=== PATIENT | female | born 1960 | race Caucasian/White ===

== ENCOUNTER 2018-05-29 07:53 | Emergency (ER) | payer OTHER ==
[~2018-05-29 07:53] MED LIST: ASPI-435 PO; LPR25 PO; TMF75 PO
[2018-05-29 07:55] VITALS: TEMP 36.5
[2018-05-29] MEDS ORDERED: SODIUM CHLORIDE 0.9% 1000ML 1,000 ML IV STA ×2 (08:02→09:25)
[2018-05-29] MEDS ORDERED: ONDANSETRON INJ 2 MG/ML 2 ML VIAL IV STA (08:02)
--- NOTE | 2018-05-29 08:11 | EMERGENCY ROOM VISIT NOTE ---
History Report prepared by [place]: Christian Navarrete Under the Supervision of: Dr. Sp Brar M.D. First contact with patient: 07:58 Chief Complaint: ABDOMINAL PAIN Stated Complaint: ABD PAIN History of Present Illness The patient is a 57 year old female who presents to the Emergency Room with abdominal pain. The patient is complaining of severe and constant abdominal pain since this morning. The patient notes that she does have a history of abdominal surgeries. She states that she has received Morphine in the past for pain when she has had similar pain. She denies any alcohol abuse, history of smoking, or drug abuse. Pain is generalized. No melena hematochezia dysuria hematuria. Reports nausea and vomiting. No hematemesis bilious vomiting or coffee-ground emesis. Source of History: patient Onset: This morning Position: abdomen Symptom Intensity: severe Timing: constant Review of Systems See HPI for pertinent positives and negatives. A total of ten systems were reviewed and were otherwise negative. Past Medical & Surgical Medical Problems: (1) Acute pancreatitis (2) Gastroenteritis (3) Hypertension Family History FH: arthritis FH: stroke Social History Smoking Status: Unknown if Ever Smoked Drug Use: none Marital Status: Housing Status: lives with significant other Current/Historical Medications Scheduled Aspirin (Aspirin 81), 81 MG PO DAILY Cholecalciferol (Vitamin D3), 1 TAB PO DAILY Allergies Coded Allergies: Hydroquinone (Verified Allergy, Severe, BLISTER, 05/29/18) AFFECTS HER AT "20%" Hydrocortisone (Verified Allergy, Unknown, BLISTERS, 05/29/18) Latex1 -Allergic Contact Dermititis (Verified Allergy, Unknown, BLISTERS, 05/29/18) Neomycin (Verified Allergy, Unknown, BLISTERS, 05/29/18) Uncoded Allergies: AMMONIUM THIOGLYCOLATE (Allergy, Severe, BLISTERS, 02/21/18) COMPONENT OF LATEX Physical Exam Vital Signs Date Time Temp Pulse Resp B/P (MAP) Pulse Ox O2 Delivery O2 Flow Rate FiO2 05/29/18 11:42 76 18 164/116 97 05/29/18 11:25 157/134 05/29/18 11:16 87 22 246/125 98 Room Air 05/29/18 09:18 76 16 219/110 96 Room Air 05/29/18 08:44 74 20 100 Room Air 05/29/18 08:16 66 05/29/18 07:55 36.5 71 24 229/112 100 Room Air Physical Exam Physical Exam GENERAL: She is oriented to person, place, and time. Patient is distressed. HENT: Exam performed. Head: Normocephalic and atraumatic. Right Ear: External ear normal. No mastoid tenderness. Left Ear: External ear normal. No mastoid tenderness. Mouth/Throat: The oropharynx is clear and moist. No trismus in the jaw. No dental abscesses or uvula swelling. No oropharyngeal exudate or tonsillar abscesses. EYES: Conjunctivae and EOM are normal. Pupils are equal, round, and reactive to light. Right eye exhibits no discharge. Left eye exhibits no discharge. No scleral icterus. NECK: Normal range of motion. Neck supple. No JVD present. No spinous process tenderness present. No carotid bruit present. No rigidity. No tracheal deviation and normal range of motion present. No Brudzinski's sign and no Kernig 's sign noted. CV: Normal rate, regular rhythm, normal heart sounds and intact distal pulses. There is no peripheral edema. Palpable radial pulses bue. PULM/CHEST: Effort normal and breath sounds normal. No respiratory distress. No stridor. She has no wheezes. She has no rales. Chest Wall: She exhibits no tenderness. ABD: The abdomen is soft. Bowel sounds are normal. She has no distension. No mass is present. There diffuse abdominal pain on palpation. There is no rebound , no guarding, no Del Cid's sign and no tenderness at McBurney's point. Rovsig negative MUSC/SKEL: Normal range of motion. There is no peripheral edema, tenderness or deformity. LYMPH: No cervical adenopathy. NEURO: She is alert and oriented to person, place, and time. She has normal strength. No cranial nerve deficit or sensory deficit. Coordination and gait normal. GCS eye subscore is 4. GCS verbal subscore is 5. GCS motor subscore is 6. Cerebellar tests wnl. SKIN: Skin is warm and dry. She is not diaphoretic. PSYCH: She has a normal mood and affect. Behavior is normal. Judgment and thought content normal. Medical Decision & Procedures ER Provider Diagnostic Interpretation: Radiology results as stated below per my review and radiologist interpretation: CT OF THE ABDOMEN AND PELVIS WITH CONTRAST CLINICAL HISTORY: Mid abdominal pain. COMPARISON STUDY: CT of the abdomen and pelvis December 08, 2017 and right upper quadrant ultrasound December 09, 2017. TECHNIQUE: Following IV administration of 93 mL of Optiray-320, axial images of the abdomen and pelvis were obtained from the lung bases to the proximal femurs. Images were reviewed in the axial, sagittal, and coronal planes. IV contrast was administered without complication. A dose lowering technique was utilized adhering to the principles of ALARA. CT DOSE: 891.13 mGy.cm FINDINGS: A small hiatal hernia is noted. A 2 cm left adrenal nodule is unchanged and CT of May 22, 2016. This is likely benign given stability. Exam is mildly compromised by motion artifact. There is no peripancreatic or pericholecystic infiltration. No biliary or pancreatic ductal dilatation is present. The spleen is normal. There is mild bilateral collecting system dilatation, greater on the right. Bladder is mildly distended. There is mild bladder wall thickening. No pneumatosis, free air or portal venous gas is present. There is mild wall thickening of the a sending colon and proximal transverse colon. There is no evidence for a bowel obstruction. The appendix is not well visualized on this exam. There is no right lower quadrant inflammation. IMPRESSION: 1. Appendix not well visualized on this exam but no right lower quadrant inflammation. 2. Mild wall thickening of the ascending colon and transverse colon which is likely due to underdistention although a nonspecific mild colitis could appear similar. 3. Mild bladder wall thickening which could be correlated with urinalysis to exclude cystitis. 4. Mild bilateral collecting system dilatation, greater on the right. This may be related to mild bladder distention. Electronically signed by: Edvin Quiroz M.D. 05/29/2018 9:43 AM Dictated Date/Time: 05/29/2018 9:28 AM CHEST ONE VIEW PORTABLE CLINICAL HISTORY: Epigastric pain. COMPARISON STUDY: Chest radiograph December 08, 2017. FINDINGS: Lung volumes are normal. No pneumothorax or pleural effusion is noted. There is no consolidation. Cardiac size is normal. Mediastinal contours are normal. There is no evidence for pulmonary edema. IMPRESSION: No acute cardiopulmonary findings. Electronically signed by: Edvin Quiroz M.D. 05/29/2018 8:27 AM Dictated Date/Time: 05/29/2018 8:26 AM Laboratory Results 05/29/18 08:05 Red Blood Count 4.94, Mean Corpuscular Volume 85.6, Mean Corpuscular Hemoglobin 29.1, Mean Corpuscular Hemoglobin Concent 34.0, Mean Platelet Volume 10.1, Neutrophils (%) (Auto) 82.9, Lymphocytes (%) (Auto) 13.1, Monocytes (%) (Auto) 3.2, Eosinophils (%) (Auto) 0.3, Basophils (%) (Auto) 0.2, Neutrophils # (Auto) 13.25, Lymphocytes # (Auto) 2.10, Monocytes # (Auto) 0.51, Eosinophils # (Auto) 0.05, Basophils # (Auto) 0.03 05/29/18 08:05 Test 05/29/18 08:05 05/29/18 08:15 05/29/18 08:30 05/29/18 10:00 White Blood Count 15.99 K/uL (4.8-10.8) Red Blood Count 4.94 M/uL (4.2-5.4) Hemoglobin 14.4 g/dL (12.0-16.0) Hematocrit 42.3 % (37-47) Mean Corpuscular Volume 85.6 fL (80-100) Mean Corpuscular Hemoglobin 29.1 pg (25-34) Mean Corpuscular Hemoglobin Concent 34.0 g/dl (32-36) Platelet Count 344 K/uL (130-400) Mean Platelet Volume 10.1 fL (7.4-10.4) Neutrophils (%) (Auto) 82.9 % Lymphocytes (%) (Auto) 13.1 % Monocytes (%) (Auto) 3.2 % Eosinophils (%) (Auto) 0.3 % Basophils (%) (Auto) 0.2 % Neutrophils # (Auto) 13.25 K/uL (1.4-6.5) Lymphocytes # (Auto) 2.10 K/uL (1.2-3.4) Monocytes # (Auto) 0.51 K/uL (0.11-0.59) Eosinophils # (Auto) 0.05 K/uL (0-0.5) Basophils # (Auto) 0.03 K/uL (0-0.2) RDW Standard Deviation 41.8 fL (36.4-46.3) RDW Coefficient of Variation 13.3 % (11.5-14.5) Immature Granulocyte % (Auto) 0.3 % Immature Granulocyte # (Auto) 0.05 K/uL (0.00-0.02) Estimated GFR () 79.0 Estimated GFR (Non- 68.2 BUN/Creatinine Ratio 15.1 (10-20) Calcium Level 9.2 mg/dl (8.5-10.1) Total Bilirubin 0.4 mg/dl (0.2-1) Direct Bilirubin 0.1 mg/dl (0-0.2) Aspartate Amino Transf (AST/SGOT) 18 U/L (15-37) Alanine Aminotransferase (ALT/SGPT) 21 U/L (12-78) Alkaline Phosphatase 87 U/L (45-117) Total Protein 7.8 gm/dl (6.4-8.2) Albumin 4.1 gm/dl (3.4-5.0) Lipase 165 U/L (73-393) Bedside Hemoglobin 15.3 g/dl (12.0-16.0) Bedside Hematocrit 45 % (37-47) Bedside Sodium 142 mEq/L (135-144) Bedside Potassium 3.5 mEq/L (3.3-5.0) Bedside Chloride 105 mEq/L (101-112) Bedside Total CO2 20 mEq/l (24-31) Anion Gap 21.0 mmol/L (16-25) Bedside Blood Urea Nitrogen 14 mg/dl (7-18) Bedside Creatinine 0.7 mg/dl (0.6-1.3) Bedside Glucose (other) 184 mg/dl (70-99) Bedside Ionized Calcium (Teressa) 1.09 mmol/l (1.12-1.32) Lactic Acid Level 3.8 mmol/L (0.4-2.0) Urine Color YELLOW Urine Appearance CLEAR (CLEAR) Urine pH 8.0 (4.5-7.5) Urine Specific [place] 1.023 (1.000-1.030) Urine Protein NEG (NEG) Urine Glucose (UA) NEG (NEG) Urine Ketones NEG (NEG) Urine Occult Blood NEG (NEG) Urine Nitrite NEG (NEG) Urine Bilirubin NEG (NEG) Urine Urobilinogen NEG (NEG) Urine Leukocyte Esterase NEG (NEG) Test 05/29/18 11:25 Bedside Lactic Acid Venous 1.24 mmol/L (0.90-1.70) Laboratory results reviewed by me Medications Administered Medications (Trade) Dose Ordered Sig/Isis Route Start Time Stop Time Status Last Admin Dose Admin Sodium Chloride 1,000 ml @ 999 mls/hr Q1H1M STAT IV 05/29/18 08:02 05/29/18 09:02 DC 05/29/18 08:25 999 MLS/HR Hydromorphone HCl (Dilaudid Inj) 1 mg NOW PRN IV 05/29/18 08:15 05/29/18 12:52 DC 05/29/18 10:32 1 MG Ondansetron HCl (Zofran Inj) 4 mg NOW STAT IV 05/29/18 08:02 05/29/18 08:05 DC 05/29/18 08:25 4 MG Lorazepam (Ativan Inj) 1 mg NOW STAT IV 05/29/18 08:56 05/29/18 08:58 DC 05/29/18 09:03 1 MG Sodium Chloride 1,000 ml @ 999 mls/hr Q1H1M STAT IV 05/29/18 09:25 05/29/18 10:25 DC 05/29/18 09:25 999 MLS/HR ED Course 0759: The patient was evaluated in room B10. A complete history and physical exam was performed. 0802: Ordered Zofran 4 mg IV, Sodium Chloride 1000 mL @ 999 mL/hr IV 0806: The patient's EMR was reviewed and shows a history of pancreatitis. 0815: Ordered Dilaudid 1 mg IV. 0856: Ordered Lorazepam 1 mg IV. 0925: Ordered Sodium Chloride 1000 mL @ 999 mL IV. 1143: I checked on the patient at this time. Her vitals are stable at this time , labs showed a leukocytosis of 16 and a Lactic acid of 3.8. CT scan was negative for appendicitis. Her gallbladder is WNL. Urine did not show any signs of infection. After fluid bolus and pain medications the patient states that she feels better. Repeat abdominal exam showed no pain on palpation of the abdomen. Lactic acid was normal on repeat and was thought to be due to dehydration. Will follow-up with PCP. The states that he will drive her home. DISCHARGE - Plan of care discussed with patient and questions answered. The patient was given both verbal and printed discharge instructions. The patient verbalized understanding and ability to comply. The patient is to seek outpatient follow up as noted in the discharge instructions. The patient verbalized understanding and ability to comply. The patient is discharged in stable condition. The patient was instructed to return for worsening symptoms. Medical Decision vitals are stable at this time, labs showed a leukocytosis of 16 and a Lactic acid of 3.8. CT scan was negative for appendicitis. Her gallbladder is WNL. Urine did not show any signs of infection. After fluid bolus and pain medications the patient states that she feels better. Repeat abdominal exam showed no pain on palpation of the abdomen. Lactic acid was normal on repeat and was thought to be due to dehydration. Will follow-up with PCP. The states that he will drive her home. DISCHARGE - Plan of care discussed with patient and questions answered. The patient was given both verbal and printed discharge instructions. The patient verbalized understanding and ability to comply. The patient is to seek outpatient follow up as noted in the discharge instructions. The patient verbalized understanding and ability to comply. The patient is discharged in stable condition. The patient was instructed to return for worsening symptoms. Medication Reconcilliation Current Medication List: was personally reviewed by me Blood Pressure Screening Patient's blood pressure: Elevated blood pressure Blood pressure disposition: Referred to PCP Impression Primary Impression: Abdominal pain Scribe Attestation The scribe's documentation has been prepared under my direction and personally reviewed by me in its entirety. I confirm that the note above accurately reflects all work, treatment, procedures, and medical decision making performed by me. The chart was completed utilizing [employer] Speech voice recognition software. Grammatical errors, random word insertions, pronoun errors, and incomplete sentences are an occasional consequence of this system due to software limitations, ambient noise, and hardware issues. Any formal questions or concerns about the content, text, or information contained within the body of this dictation should be directly addressed to the physician for clarification. Departure Information Dispostion Home / Self-Care Referrals Jose Watkins M.D. (PCP) Patient Instructions [facility] Problem Qualifiers Primary Impression: Abdominal pain Abdominal location: unspecified location Qualified Codes: R10.9 - Unspecified abdominal pain
[2018-05-29] MEDS ORDERED: OPTIRAY 320 IV PRN (08:15)
[2018-05-29 08:20] LABS: BASO % 0.2 %; BASO ABS # 0.03 K/uL (0-0.2); EOS % 0.3 %; EOS ABS # 0.05 K/uL (0-0.5); HEMATOCRIT 42.3 % (37-47); HEMOGLOBIN 14.4 g/dL (12.0-16.0); IG# 0.05 K/uL (0.00-0.02); LYMPH % 13.1 %; MEAN CELL VOLUME 85.6 fL (80-100); MEAN CORPUSCULAR HEMOGLOBIN 29.1 pg (25-34); MEAN PLATELET VOLUME 10.1 fL (7.4-10.4); MONO % 3.2 %; MONO ABS # 0.51 K/uL (0.11-0.59); NEUT % 82.9 %; NEUT ABS # 13.25 K/uL (1.4-6.5); PLATELET COUNT 344 K/uL (130-400); RED CELL DISTRIBUTION WIDTH CV 13.3 % (11.5-14.5); RED CELL DISTRIBUTION WIDTH SD 41.8 fL (36.4-46.3); WHITE BLOOD COUNT 15.99 K/uL (4.8-10.8)
[2018-05-29] MEDS: HYDROmorphone INJ 1 MG/ML SYR IV PRN ×2 (08:25→10:32)
--- NOTE | 2018-05-29 08:28 | DIAGNOSTIC IMAGING REPORT ---
CHEST ONE VIEW PORTABLE CLINICAL HISTORY: Epigastric pain. COMPARISON STUDY: Chest radiograph December 08, 2017. FINDINGS: Lung volumes are normal. No pneumothorax or pleural effusion is noted. There is no consolidation. Cardiac size is normal. Mediastinal contours are normal. There is no evidence for pulmonary edema. IMPRESSION: No acute cardiopulmonary findings. Electronically signed by: Edvin Quiroz M.D. 05/29/2018 8:27 AM Dictated Date/Time: 05/29/2018 8:26 AM
[2018-05-29 08:29] LABS: ISTAT CREATININE 0.7 mg/dl (0.6-1.3); ISTAT IONIZED CALCIUM 1.09 mmol/l (1.12-1.32); ISTAT POTASSIUM 3.5 mEq/L (3.3-5.0)
[2018-05-29 08:40] LABS: ALBUMIN 4.1 gm/dl (3.4-5.0); ALKALINE PHOSPHATASE 87 U/L (45-117); ALT/SGPT 21 U/L (12-78); AST/SGOT 18 U/L (15-37); BLOOD UREA NITROGEN 14 mg/dl (7-18); CALCIUM 9.2 mg/dl (8.5-10.1); CARBON DIOXIDE 21 mmol/L (21-32); CREATININE 0.92 mg/dl (0.60-1.20); GLUCOSE 180 mg/dl (70-99); LIPASE 165 U/L (73-393); POTASSIUM 3.5 mmol/L (3.5-5.1); SODIUM 139 mmol/L (136-145); TOTAL PROTEIN 7.8 gm/dl (6.4-8.2)
[2018-05-29] MEDS ORDERED: CHOL1000 PO (08:47)
[2018-05-29] MEDS ORDERED: LORAZEPAM 2 MG/ML 1 ML VIAL IV STA (08:56)
--- NOTE | 2018-05-29 09:44 | DIAGNOSTIC IMAGING REPORT ---
CT OF THE ABDOMEN AND PELVIS WITH CONTRAST CLINICAL HISTORY: Mid abdominal pain. COMPARISON STUDY: CT of the abdomen and pelvis December 08, 2017 and right upper quadrant ultrasound December 09, 2017. TECHNIQUE: Following IV administration of 93 mL of Optiray-320, axial images of the abdomen and pelvis were obtained from the lung bases to the proximal femurs. Images were reviewed in the axial, sagittal, and coronal planes. IV contrast was administered without complication. A dose lowering technique was utilized adhering to the principles of ALARA. CT DOSE: 891.13 mGy.cm FINDINGS: A small hiatal hernia is noted. A 2 cm left adrenal nodule is unchanged and CT of May 22, 2016. This is likely benign given stability. Exam is mildly compromised by motion artifact. There is no peripancreatic or pericholecystic infiltration. No biliary or pancreatic ductal dilatation is present. The spleen is normal. There is mild bilateral collecting system dilatation, greater on the right. Bladder is mildly distended. There is mild bladder wall thickening. No pneumatosis, free air or portal venous gas is present. There is mild wall thickening of the a sending colon and proximal transverse colon. There is no evidence for a bowel obstruction. The appendix is not well visualized on this exam. There is no right lower quadrant inflammation. IMPRESSION: 1. Appendix not well visualized on this exam but no right lower quadrant inflammation. 2. Mild wall thickening of the ascending colon and transverse colon which is likely due to underdistention although a nonspecific mild colitis could appear similar. 3. Mild bladder wall thickening which could be correlated with urinalysis to exclude cystitis. 4. Mild bilateral collecting system dilatation, greater on the right. This may be related to mild bladder distention. Electronically signed by: Edvin Quiroz M.D. 05/29/2018 9:43 AM Dictated Date/Time: 05/29/2018 9:28 AM
[2018-05-29 11:42] VITALS: BP 164/116; PULSE 76; O2SAT 97
[2018-06-01] MEDS ORDERED: VLTG EXT (16:49)
[2018-06-01] MEDS ORDERED: AMLO5TAB3 PO (16:49)
[2018-06-01] MEDS ORDERED: SUCR1TAB29 PO (16:49)
[2018-06-01] MEDS ORDERED: PANT40TA2 PO (16:49)
== END 2018-05-29 12:08 | disposition home or self-care (01) ==
LOC: C.EDB 07:54
DX: R10.9 Unspecified abdominal pain (principal); R11.2 Nausea with vomiting, unspecified; I10 Essential (primary) hypertension; Z79.82 Long term (current) use of aspirin

== ENCOUNTER 2018-05-30 06:24 | Inpatient (IN) | payer OTHER ==
[~2018-05-30] VITALS: Ht 157.5 cm; Wt 68.0 kg
[~2018-05-30 06:24] MED LIST changes: +CHOL1000 PO; -LPR25 PO; -TMF75 PO
[2018-05-30] MEDS ORDERED: SUCRALFATE 1 GM TAB PO STA (06:43)
[2018-05-30] MEDS ORDERED: GI COCKTAIL PO STA (06:43)
[2018-05-30] MEDS ORDERED: FAMOTIDINE 20 MG TAB PO STA (06:43)
[2018-05-30] MEDS ORDERED: SUCRALFATE 1 GM/10 ML UDC PO STA (06:46)
[2018-05-30] MEDS ORDERED: ONDANSETRON INJ 2 MG/ML 2 ML VIAL IV STA (06:48)
[2018-05-30] MEDS ORDERED: LIDOCAINE HCL 2% VISC SOLN 20 ML UDC ONE (06:52)
[2018-05-30] MEDS ORDERED: ALUMINUM/MAGNESIUM SUSP 30 ML UDC ONE (06:52)
[2018-05-30 06:58] LABS: BASO % 0.1 %; BASO ABS # 0.02 K/uL (0-0.2); HEMATOCRIT 41.5 % (37-47); HEMOGLOBIN 14.9 g/dL (12.0-16.0); IG# 0.08 K/uL (0.00-0.02); LYMPH % 8.3 %; LYMPH ABS # 1.71 K/uL (1.2-3.4); MEAN CELL VOLUME 83.3 fL (80-100); MEAN CORPUSCULAR HEMOGLOBIN 29.9 pg (25-34); MEAN CORPUSCULAR HGB CONC 35.9 g/dl (32-36); MEAN PLATELET VOLUME 10.3 fL (7.4-10.4); MONO % 6.5 %; MONO ABS # 1.34 K/uL (0.11-0.59); NEUT % 84.7 %; NEUT ABS # 17.45 K/uL (1.4-6.5); PLATELET COUNT 362 K/uL (130-400); RED CELL DISTRIBUTION WIDTH CV 13.4 % (11.5-14.5); RED CELL DISTRIBUTION WIDTH SD 40.5 fL (36.4-46.3)
[2018-05-30] MEDS ORDERED: PANTOprazole INJ 40 MG in SYRINGE 0 ML IV ONE (07:00)
--- NOTE | 2018-05-30 07:02 | DIAGNOSTIC IMAGING REPORT ---
CHEST ONE VIEW PORTABLE CLINICAL HISTORY: Atypical chest pain, nausea, vomiting. COMPARISON STUDY: May 29, 2018 FINDINGS: The cardiac and mediastinal contours are normal. There is no evidence of focal pulmonary consolidation. There is no evidence of failure. No pleural effusions are visualized.[ IMPRESSION: No active disease in the chest. Electronically signed by: Odilon Ahmadi M.D. 05/30/2018 7:00 AM Dictated Date/Time: 05/30/2018 7:00 AM
[2018-05-30 07:04] LABS: ALBUMIN 4.4 gm/dl (3.4-5.0); CALCIUM 9.2 mg/dl (8.5-10.1); CREATININE 1.13 mg/dl (0.60-1.20); POTASSIUM 2.8 mmol/L (3.5-5.1)
[2018-05-30] MEDS ORDERED: POTASSIUM CHLORIDE 20 MEQ/15 ML UDC PO STA (07:04)
--- NOTE | 2018-05-30 07:06 | EMERGENCY ROOM VISIT NOTE ---
History First contact with patient: 06:31 Chief Complaint: ABDOMINAL PAIN Stated Complaint: Abd pain, n/v Nursing Triage Summary: Pt was here yesterday and returns tonight via ambulance for same sx. Pt states she woke up at 0330 a with n/v and abd pain. Pt has h/o prancreatitis. Pt states "I want those pain meds I had yesterday they made me feel good." History of Present Illness The patient is a 57 year old female who presents to the Emergency Room with complaints of epigastric pain nausea and vomiting. The patient's family called an ambulance this morning for an unresponsive female who was felt to be intoxicated. The patient arrives to the emergency department asking for the pain medication that she received yesterday. She reports she has a history of pancreatitis. The patient reports that she takes a daily aspirin as her only medication and also reports that she has been increasing her aspirin intake for this epigastric pain. The patient is rambling and notes that she has an adrenal tumor that was felt to be causing the pain at one point. She also reports being scoped by that starts with the G earlier in 2017. The patient is writhing around on the bed moaning. She reports she was prescribed a medication that starts with a "P" for her stomach however she never filled this medication. The patient reports calling brannon Davis for an appointment at 5 this morning however nobody called her back. Review of Systems See HPI for pertinent positives & negatives. A total of 10 systems reviewed and were otherwise negative. Past Medical/Surgical History Medical Problems: (1) Acute pancreatitis (2) Gastroenteritis (3) Hypertension Family History FH: arthritis FH: stroke Social History Smoking Status: Unknown if Ever Smoked Drug Use: none Marital Status: Housing Status: lives with significant other Current/Historical Medications Scheduled Aspirin (Aspirin 81), 81 MG PO DAILY Cholecalciferol (Vitamin D3), 1 TAB PO DAILY Physical Exam Vital Signs Date Time Temp Pulse Resp B/P (MAP) Pulse Ox O2 Delivery O2 Flow Rate FiO2 05/30/18 11:14 72 16 138/105 98 Nasal Cannula 2.0 05/30/18 10:18 74 16 96/67 99 Nasal Cannula 2.0 05/30/18 09:35 0 16 127/72 100 Room Air 05/30/18 09:10 87 16 142/88 98 Room Air 05/30/18 08:30 78 16 110/73 98 Room Air 05/30/18 08:10 96 Nasal Cannula 2.0 05/30/18 08:09 89 16 149/89 97 Room Air 05/30/18 08:02 77 16 221/121 05/30/18 06:48 Room Air 05/30/18 06:48 Room Air 05/30/18 06:45 79 05/30/18 06:34 36.8 90 20 138/98 98 Room Air Physical Exam GENERAL: Awake, alert, well-appearing, in no acute distress when talking but moaning loudly throught ED when nobody is in the room HENT: Normocephalic, atraumatic. Oropharynx unremarkable. EYES: Normal conjunctiva. Sclera non-icteric. NECK: Supple. No nuchal rigidity. FROM. No JVD. RESPIRATORY: Clear to auscultation. CARDIAC: Regular rate, normal rhythm. Extremities warm and well perfused. Pulses equal. ABDOMEN: Soft, non-distended. No tenderness to palpation. No rebound or guarding. No masses. RECTAL: Deferred. MUSCULOSKELETAL: Chest examination reveals no tenderness. The back is symmetrical on inspection without obvious abnormality. There is no CVA tenderness to palpation. No joint edema. LOWER EXTREMITIES: Calves are equal size bilaterally and non-tender. No edema. No discoloration. NEURO: Normal sensorium. No sensory or motor deficits noted. SKIN: No rash or jaundice noted. Medical Decision & Procedures ER Provider Diagnostic Interpretation: CHEST ONE VIEW PORTABLE CLINICAL HISTORY: Atypical chest pain, nausea, vomiting. COMPARISON STUDY: May 29, 2018 FINDINGS: The cardiac and mediastinal contours are normal. There is no evidence of focal pulmonary consolidation. There is no evidence of failure. No pleural effusions are visualized.[ IMPRESSION: No active disease in the chest. CT ABD/PELVIS IV CONTRAST ONLY CLINICAL HISTORY: Epigastric pain, nausea, vomiting. COMPARISON STUDY: May 29, 2018 TECHNIQUE: Following the IV administration of 119 mL of Optiray-320, CT scan of the abdomen and pelvis was performed from the lung bases to the proximal femurs. Images are reviewed in the axial, sagittal, and coronal planes. IV contrast was administered without complication. A dose lowering technique was utilized adhering to the principles of ALARA. CT DOSE: 705.17 mGy.cm FINDINGS: There is mild motion artifact. Lower chest: The heart is normal in size and configuration, without pericardial effusion. The lung bases and pleural spaces are clear. Liver: The contrast-enhanced liver is normal in size, contour, and attenuation. There is no intrahepatic biliary ductal dilatation. The hepatic veins and portal veins are patent. Gallbladder: Unremarkable. Spleen: Normal in size and attenuation. Pancreas: Unremarkable. Adrenal glands: Unremarkable. Kidneys: There is minor fullness of each renal collecting system. Significant hydronephrosis is not felt to be present. No solid renal masses are visualized. Bowel: There are no transition zones indicate bowel obstruction. The appendix is not well-visualized. There are however no secondary findings to indicate acute appendicitis. There are no findings to indicate acute diverticulitis. There is a rectosigmoid air-fluid level. Peritoneum: There is no intraperitoneal free air or abdominal ascites. Vasculature: The abdominal aorta is normal in course and caliber. Adenopathy: None. Pelvic viscera: There is stable borderline bladder wall thickening. Skeletal structures: No destructive osseous lesions are seen. IMPRESSION: 1. No acute intra-abdominal or pelvic findings 2. Mild fullness of both renal collecting systems, unchanged from the prior study 3. No evidence of bowel obstruction. No evidence of free air 4. No evidence of acute appendicitis. No evidence of acute diverticulitis. 5. Stable borderline bladder wall thickening Electronically signed by: Odilon Ahmadi M.D. 05/30/2018 9:25 AM Dictated Date/Time: 05/30/2018 9:18 AM (CHEST FOR PE) ANGIO WITH HISTORY: 57 years-old Female with . Presents with acute epigastric abdominal pain and acute chest pain with shortness of breath, nausea and vomiting TECHNIQUE: Multiple CTA images of the chest were obtained after the intravenous administration of 119 ml Optiray 320. Coronal and sagittal MIPS were obtained from the axial data set and were submitted for review. A dose lowering technique was utilized adhering to the principles of ALARA. COMPARISON: CT abdomen and pelvis of same day, chest radiograph of same day FINDINGS: CTA: Heart is normal in size without pericardial effusion. Coronary arterial calcifications are noted. The thoracic aorta is normal in both course and caliber without aneurysm or dissection. Calcification is noted at the origin of the celiac trunk. The pulmonary arterial tree is opacified to level of the proximal segmental branches. The segmental subsegmental branches are not well dilated secondary to respiratory motion. No filling defects identified to suggest pulmonary thromboembolic disease. CT CHEST: No focal thyroid nodule identified. No pathologically enlarged lymph nodes are identified. There is no pneumothorax or pleural effusion. Mild dependent subsegmental groundglass densities suggest atelectasis. Evaluation of the lung parenchyma is also mildly limited secondary to respiratory motion. The central airways are patent. There is mild circumferential wall thickening of the mid to distal esophagus with small sliding-type hiatal hernia. Oral contrast is noted within the hernia sac. There is moderate thickening about the bilateral adrenal glands, only partially imaged. Please refer to CT abdomen and pelvis of same day for further details. Calcifications are noted about the left breast. Multilevel spondylitic spurring with intervertebral disc space narrowing about the spine. IMPRESSION: 1. No acute intrathoracic abnormality identified, specifically no acute aortic pathology or evidence of pulmonary thromboembolic disease. Please note however that the exam is limited secondary to respiratory motion. No central pulmonary thromboembolic disease. 2. No focal airspace consolidation to suggest pneumonia. 3. Mild coronary arterial disease. 4. Mild wall thickening about the mid and distal esophagus with small sliding-type hiatal hernia. The above report was generated using voice recognition software. It may contain grammatical, syntax or spelling errors. Electronically signed by: Kamaljit Crenshaw M.D. 05/30/2018 9:22 AM Dictated Date/Time: 05/30/2018 9:12 AM Laboratory Results 05/30/18 06:30 Red Blood Count 4.98, Mean Corpuscular Volume 83.3, Mean Corpuscular Hemoglobin 29.9, Mean Corpuscular Hemoglobin Concent 35.9, Mean Platelet Volume 10.3, Neutrophils (%) (Auto) 84.7, Lymphocytes (%) (Auto) 8.3, Monocytes (%) (Auto) 6.5, Eosinophils (%) (Auto) 0.0, Basophils (%) (Auto) 0.1, Neutrophils # (Auto) 17.45, Lymphocytes # (Auto) 1.71, Monocytes # (Auto) 1.34, Eosinophils # (Auto) 0.00, Basophils # (Auto) 0.02 05/30/18 06:30 Test 05/30/18 06:30 05/30/18 07:30 White Blood Count 20.60 K/uL (4.8-10.8) Red Blood Count 4.98 M/uL (4.2-5.4) Hemoglobin 14.9 g/dL (12.0-16.0) Hematocrit 41.5 % (37-47) Mean Corpuscular Volume 83.3 fL (80-100) Mean Corpuscular Hemoglobin 29.9 pg (25-34) Mean Corpuscular Hemoglobin Concent 35.9 g/dl (32-36) Platelet Count 362 K/uL (130-400) Mean Platelet Volume 10.3 fL (7.4-10.4) Neutrophils (%) (Auto) 84.7 % Lymphocytes (%) (Auto) 8.3 % Monocytes (%) (Auto) 6.5 % Eosinophils (%) (Auto) 0.0 % Basophils (%) (Auto) 0.1 % Neutrophils # (Auto) 17.45 K/uL (1.4-6.5) Lymphocytes # (Auto) 1.71 K/uL (1.2-3.4) Monocytes # (Auto) 1.34 K/uL (0.11-0.59) Eosinophils # (Auto) 0.00 K/uL (0-0.5) Basophils # (Auto) 0.02 K/uL (0-0.2) RDW Standard Deviation 40.5 fL (36.4-46.3) RDW Coefficient of Variation 13.4 % (11.5-14.5) Immature Granulocyte % (Auto) 0.4 % Immature Granulocyte # (Auto) 0.08 K/uL (0.00-0.02) Prothrombin Time 10.3 SECONDS (9.0-12.0) Prothromb Time International Ratio 1.0 (0.9-1.1) Anion Gap 15.0 mmol/L (3-11) Est Creatinine Clear Calc Drug Dose 48.0 ml/min Estimated GFR () 61.6 Estimated GFR (Non- 53.2 BUN/Creatinine Ratio 12.4 (10-20) Calcium Level 9.2 mg/dl (8.5-10.1) Magnesium Level 1.6 mg/dl (1.8-2.4) Total Bilirubin 0.8 mg/dl (0.2-1) Direct Bilirubin 0.2 mg/dl (0-0.2) Aspartate Amino Transf (AST/SGOT) 22 U/L (15-37) Alanine Aminotransferase (ALT/SGPT) 21 U/L (12-78) Alkaline Phosphatase 85 U/L (45-117) Total Creatine Kinase 133 U/L (26-192) Creatine Kinase MB 5.4 ng/ml (0.5-3.6) Creatine Kinase MB Ratio 4.1 (0-3.0) Troponin I 1.010 ng/ml (0-0.045) Total Protein 8.4 gm/dl (6.4-8.2) Albumin 4.4 gm/dl (3.4-5.0) Lipase 2023 U/L (73-393) Ethyl Alcohol mg/dL < 3.0 mg/dl (0-3) Medications Administered Medications (Trade) Dose Ordered Sig/Isis Route Start Time Stop Time Status Last Admin Dose Admin Miscellaneous Medication (Gi Cocktail) 24 ml NOW STAT PO 05/30/18 06:43 05/30/18 06:45 DC 05/30/18 06:43 24 ML Pantoprazole Sodium 40 mg/ Syringe 10 ml @ 5 mls/min NOW ONCE IV 05/30/18 07:00 05/30/18 07:01 DC 05/30/18 07:27 5 MLS/MIN Ondansetron HCl (Zofran Inj) 4 mg NOW STAT IV 05/30/18 06:48 05/30/18 06:49 DC 05/30/18 06:59 4 MG Potassium Chloride (Celia Ciel Elix) 40 meq NOW STAT PO 05/30/18 07:04 05/30/18 07:06 DC 05/30/18 07:24 40 MEQ Potassium Chloride 100 ml @ 100 mls/hr NOW STAT IV 05/30/18 07:12 05/30/18 08:11 DC 05/30/18 07:23 100 MLS/HR Heparin Sodium/ Dextrose (Heparin 25,000 Unit/500ml D5W) 25,000 unit STK-MED ONCE .ROUTE 05/30/18 07:22 05/30/18 07:23 DC 05/30/18 07:29 25,000 UNIT Nitroglycerin (Nitroglycerin [place]) 60 spry STK-MED ONCE .ROUTE 05/30/18 07:22 05/30/18 07:23 DC 05/30/18 07:30 60 SPRY Sodium Chloride 1,000 ml @ 999 mls/hr Q1H1M STAT IV 05/30/18 07:25 05/30/18 08:25 DC 05/30/18 07:25 999 MLS/HR Nitroglycerin (Nitroglycerin 2% Oint) 1 inch NOW STAT EXT 05/30/18 07:41 05/30/18 07:42 DC 05/30/18 09:26 1 INCH Lorazepam (Ativan Inj) 1 mg NOW STAT IV 05/30/18 07:49 05/30/18 07:51 DC 05/30/18 07:59 1 MG Potassium Chloride 100 ml @ 100 mls/hr NOW STAT IV 05/30/18 08:28 05/30/18 09:27 DC 05/30/18 09:27 100 MLS/HR ECG Per My Interpretation Indication: abdominal pain Rate (beats per minute): 69 Rhythm: normal sinus Findings: no acute ischemic change, prolonged QT, no ectopy Change: repeat EKG @ 0743 NSR rate of 8 prolonged QT, no ST elevation or depression; unchanged from previous Medical Decision This is a 57-year-old female who arrives via ambulance moaning and writhing around the bed. The patient was just in the emergency department yesterday. Previous records were reviewed by myself in the room with the patient. The patient notes she should not of been sent home yesterday with her brought blood pressure as high as it was. I then noted that her blood pressure came down when her pain was under control. I strongly suspect based on the patient's symptoms as well as her past medical history and reviewing her CAT scan yesterday along with her intake of aspirin that she may be suffering from reflux along with ulcer disease. She was found to have an elevation in her troponin. She was given a GI cocktail along with Pepcid and Carafate. Her potassium was found to be low and I begin repeating this via IV as the patient vomited up p.o. potassium. Based on the patient's EKG I did discuss the case with the on-call form stripper who agreed to see the patient. I also discussed the case with the hospitalist. I did place the patient on a heparin drip. She does have an elevation in lipase however no evidence of pancreatitis on CAT scan. The patient appears manic in her presentation and to calm her down she was given 1 mg of Ativan. Impression Primary Impression: NSTEMI (non-ST elevated myocardial infarction) Additional Impression: Pancreatitis I have personally spent greater than 30 minutes of critical care time in the direct management of this patient. This includes bedside care, interpretation of diagnostic studies, and testing, discussion with consultants, patient, and family members, and other required patient management activities. This 30 minutes is in excess of all separately billable procedures. Departure Information Dispostion Home / Self-Care Referrals Jose Watkins M.D. (PCP) Patient Instructions My [facility] Problem Qualifiers Additional Impression: Pancreatitis Chronicity: acute Pancreatitis type: unspecified pancreatitis type Acute pancreatitis complication: unspecified Qualified Codes: K85.90 - Acute pancreatitis without necrosis or infection, unspecified
[2018-05-30 07:08] LABS: CKMB 5.4 ng/ml (0.5-3.6); TOTAL PROTEIN 8.4 gm/dl (6.4-8.2)
[2018-05-30] MEDS ORDERED: POTASSIUM CHLR 10 MEQ / WTR 100 ML IV STA ×2 (07:12→08:28)
[2018-05-30] MEDS ORDERED: HEPARIN 25000 UNIT/500 ML D5W ONE (07:22)
[2018-05-30] MEDS ORDERED: NITROGLYCERIN 400 MCG/1 SPRAY 60 DOSE ONE (07:22)
[2018-05-30 07:25] LABS: PTT PATIENT 25.4 SECONDS (21.0-31.0)
[2018-05-30] MEDS ORDERED: SODIUM CHLORIDE 0.9% 1000ML 1,000 ML IV STA (07:25)
[2018-05-30] MEDS ORDERED: NITROGLYCERIN SL SPR 4.9 GM BTL SL PRN (07:30)
[2018-05-30] MEDS ORDERED: OPTIRAY 320 IV PRN ×2 (07:30→09:30)
[2018-05-30] MEDS ORDERED: NITROGLYCERIN 2% OINTMENT 30GM TUBE EXT STA (07:41)
[2018-05-30] MEDS ORDERED: METOCLOPRAMIDE HCL INJ 5 MG/ML 2 ML VIAL IV STA (07:49)
[2018-05-30] MEDS ORDERED: LORAZEPAM 2 MG/ML 1 ML VIAL IV STA (07:49)
--- NOTE | 2018-05-30 08:28 | Cardiology Consultation ---
Cardiology Consultation Date of Consultation: May 30, 2018. Requesting Physician: Dr. Kaur Reason for Consultation: Elevated Troponin Pt evaluation today including: conversation w/ patient, physical exam, lab review, review of studies, review of inpatient medication list, conversation w/ attending History of Present Illness Patient seen and examined in the emergency room. She just received IV Ativan for her echocardiogram and cannot provide a coherent history at the moment. This is a 57-year-old woman who has a history of known nonocclusive coronary artery disease followed by Dr. Ponce in [place]. She had catheterization in 2013. She has refused statin therapy. She also has a history of hypertension and has refused blood pressure medication. Past Medical/Surgical History (1) Hypertension Family History FH: arthritis FH: stroke Social History Smoking Status: Unknown if Ever Smoked History of Alcohol Use: Yes Review of Systems Constitutional: No fever, No weight loss, No weakness Respiratory: No cough, No wheezing, No shortness of breath, No dyspnea on exertion Cardiac: No chest pain, No orthopnea, No PND, No edema, No palpitations Abdomen: + see HPI, + pain, + vomiting, No nausea, No diarrhea, No GI bleeding Female : No problem reported Neurologic: No paralysis, No weakness, No numbness/tingling, No balance problems Heme: No abnormal bleeding/bruising, No clotting problems Endo: No fatigue Skin: No problem reported Probably not reliable due to just receiving Ativan and lack of concentration All Other Systems: Reviewed and Negative Allergies Coded Allergies: Hydroquinone (Verified Allergy, Severe, BLISTER, 05/30/18) AFFECTS HER AT "20%" Hydrocortisone (Verified Allergy, Unknown, BLISTERS, 05/30/18) Latex1 -Allergic Contact Dermititis (Verified Allergy, Unknown, BLISTERS, 05/30/18) Neomycin (Verified Allergy, Unknown, BLISTERS, 05/30/18) Uncoded Allergies: AMMONIUM THIOGLYCOLATE (Allergy, Severe, BLISTERS, 02/21/18) COMPONENT OF LATEX Medications Current Inpatient Medications Medications (Trade) Dose Ordered Sig/Isis Route Start Time Stop Time Status Last Admin Dose Admin Nitroglycerin (Nitrolingual Happy) 3 sprays NOW PRN SL 05/30/18 07:30 06/29/18 07:29 Ioversol (Optiray 320) 100 ml UD PRN IV 05/30/18 07:30 06/03/18 07:29 Sodium Chloride 1,000 ml @ 999 mls/hr Q1H1M STAT IV 05/30/18 07:25 05/30/18 08:25 05/30/18 07:25 999 MLS/HR Physical Exam Vital Signs Past 12 Hours Date Time Temp Pulse Resp B/P (MAP) Pulse Ox O2 Delivery O2 Flow Rate FiO2 05/30/18 08:09 89 16 149/89 97 Room Air 05/30/18 08:02 77 16 221/121 05/30/18 06:48 Room Air 05/30/18 06:48 Room Air 05/30/18 06:45 79 05/30/18 06:34 36.8 90 20 138/98 98 Room Air Constitutional: Level of Distress: moderate distress Psychiatric: Mental Status: active & alert Head: normocephalic Eyes: EOM: EOMI ENMT: normal ENT inspection, hearing grossly normal Neck: supple, no masses Lungs: Respiratory effort: no dyspnea, good air movement Auscultation: breath sounds normal, no wheezing Cardiovascular: Heart Auscultation: RRR, no murmurs, no rubs, no gallops Peripheral Pulses: Bruits: none appreciated Abdomen: Bowel Sounds: normal Inspection & Palpation: soft, no tenderness, guarding & rebound, no masses Musculoskeletal: normal strength (5/5 throughout) Extremities: no edema Neurologic: Cranial Nerves: grossly intact Sensation: grossly intact Data Laboratory Results: Last 24 Hours Test 05/30/18 06:30 05/30/18 07:30 White Blood Count 20.60 K/uL Red Blood Count 4.98 M/uL Hemoglobin 14.9 g/dL Hematocrit 41.5 % Mean Corpuscular Volume 83.3 fL Mean Corpuscular Hemoglobin 29.9 pg Mean Corpuscular Hemoglobin Concent 35.9 g/dl Platelet Count 362 K/uL Mean Platelet Volume 10.3 fL Neutrophils (%) (Auto) 84.7 % Lymphocytes (%) (Auto) 8.3 % Monocytes (%) (Auto) 6.5 % Eosinophils (%) (Auto) 0.0 % Basophils (%) (Auto) 0.1 % Neutrophils # (Auto) 17.45 K/uL Lymphocytes # (Auto) 1.71 K/uL Monocytes # (Auto) 1.34 K/uL Eosinophils # (Auto) 0.00 K/uL Basophils # (Auto) 0.02 K/uL RDW Standard Deviation 40.5 fL RDW Coefficient of Variation 13.4 % Immature Granulocyte % (Auto) 0.4 % Immature Granulocyte # (Auto) 0.08 K/uL Prothrombin Time 10.3 SECONDS Prothromb Time International Ratio 1.0 Activated Partial Thromboplast Time 25.4 SECONDS Partial Thromboplastin Ratio 1.0 Sodium Level 133 mmol/L Potassium Level 2.8 mmol/L Chloride Level 98 mmol/L Carbon Dioxide Level 20 mmol/L Anion Gap 15.0 mmol/L Blood Urea Nitrogen 14 mg/dl Creatinine 1.13 mg/dl Est Creatinine Clear Calc Drug Dose 48.0 ml/min Estimated GFR () 61.6 Estimated GFR (Non- 53.2 BUN/Creatinine Ratio 12.4 Random Glucose 165 mg/dl Calcium Level 9.2 mg/dl Total Bilirubin 0.8 mg/dl Direct Bilirubin 0.2 mg/dl Aspartate Amino Transf (AST/SGOT) 22 U/L Alanine Aminotransferase (ALT/SGPT) 21 U/L Alkaline Phosphatase 85 U/L Total Creatine Kinase 133 U/L Creatine Kinase MB 5.4 ng/ml Creatine Kinase MB Ratio 4.1 Troponin I 1.010 ng/ml Total Protein 8.4 gm/dl Albumin 4.4 gm/dl Lipase 2023 U/L Ethyl Alcohol mg/dL < 3.0 mg/dl Imaging: Chest x-ray shows no active disease EK electrocardiograms are available this presentation, both show sinus rhythm with QT prolongation and possible hyperacute T waves. Telemetry reviewed: Sinus rhythm, no significant ectopy Echocardiogram: Reviewed at the bedside in the emergency room including with Definity: There does not appear to be any significant abnormality and overall function and no significant wall motion abnormality. Assessment & Plan 1. Elevated troponin: She has significant troponin elevation, I suspect this is demand ischemia, she has known underlying coronary artery disease based on catheterization 4 years ago and has refused statin therapy as well as treatment for her hypertension. I would not take her urgently to the laboratory, I would recommend to monitor serial cardiac enzymes and electrocardiograms. 2. Abdominal discomfort: Based on her elevated lipase and elevated white count I suspect this is acute pancreatitis. I doubt it is referred pain from a cardiac etiology. 3. Severe hypertension: This is likely stress related in part although she has a history of very high blood pressure and has refused treatment. I would recommend treating this with beta-blockade and nitrates. Thank you for allowing me to participate in her care.
--- NOTE | 2018-05-30 09:24 | DIAGNOSTIC IMAGING REPORT ---
(CHEST FOR PE) ANGIO WITH HISTORY: 57 years-old Female with . Presents with acute epigastric abdominal pain and acute chest pain with shortness of breath, nausea and vomiting TECHNIQUE: Multiple CTA images of the chest were obtained after the intravenous administration of 119 ml Optiray 320. Coronal and sagittal MIPS were obtained from the axial data set and were submitted for review. A dose lowering technique was utilized adhering to the principles of ALARA. COMPARISON: CT abdomen and pelvis of same day, chest radiograph of same day FINDINGS: CTA: Heart is normal in size without pericardial effusion. Coronary arterial calcifications are noted. The thoracic aorta is normal in both course and caliber without aneurysm or dissection. Calcification is noted at the origin of the celiac trunk. The pulmonary arterial tree is opacified to level of the proximal segmental branches. The segmental subsegmental branches are not well dilated secondary to respiratory motion. No filling defects identified to suggest pulmonary thromboembolic disease. CT CHEST: No focal thyroid nodule identified. No pathologically enlarged lymph nodes are identified. There is no pneumothorax or pleural effusion. Mild dependent subsegmental groundglass densities suggest atelectasis. Evaluation of the lung parenchyma is also mildly limited secondary to respiratory motion. The central airways are patent. There is mild circumferential wall thickening of the mid to distal esophagus with small sliding-type hiatal hernia. Oral contrast is noted within the hernia sac. There is moderate thickening about the bilateral adrenal glands, only partially imaged. Please refer to CT abdomen and pelvis of same day for further details. Calcifications are noted about the left breast. Multilevel spondylitic spurring with intervertebral disc space narrowing about the spine. IMPRESSION: 1. No acute intrathoracic abnormality identified, specifically no acute aortic pathology or evidence of pulmonary thromboembolic disease. Please note however that the exam is limited secondary to respiratory motion. No central pulmonary thromboembolic disease. 2. No focal airspace consolidation to suggest pneumonia. 3. Mild coronary arterial disease. 4. Mild wall thickening about the mid and distal esophagus with small sliding-type hiatal hernia. The above report was generated using voice recognition software. It may contain grammatical, syntax or spelling errors. Electronically signed by: Kamaljit Crenshaw M.D. 05/30/2018 9:22 AM Dictated Date/Time: 05/30/2018 9:12 AM
--- NOTE | 2018-05-30 09:27 | DIAGNOSTIC IMAGING REPORT ---
CT ABD/PELVIS IV CONTRAST ONLY CLINICAL HISTORY: Epigastric pain, nausea, vomiting. COMPARISON STUDY: May 29, 2018 TECHNIQUE: Following the IV administration of 119 mL of Optiray-320, CT scan of the abdomen and pelvis was performed from the lung bases to the proximal femurs. Images are reviewed in the axial, sagittal, and coronal planes. IV contrast was administered without complication. A dose lowering technique was utilized adhering to the principles of ALARA. CT DOSE: 705.17 mGy.cm FINDINGS: There is mild motion artifact. Lower chest: The heart is normal in size and configuration, without pericardial effusion. The lung bases and pleural spaces are clear. Liver: The contrast-enhanced liver is normal in size, contour, and attenuation. There is no intrahepatic biliary ductal dilatation. The hepatic veins and portal veins are patent. Gallbladder: Unremarkable. Spleen: Normal in size and attenuation. Pancreas: Unremarkable. Adrenal glands: Unremarkable. Kidneys: There is minor fullness of each renal collecting system. Significant hydronephrosis is not felt to be present. No solid renal masses are visualized. Bowel: There are no transition zones indicate bowel obstruction. The appendix is not well-visualized. There are however no secondary findings to indicate acute appendicitis. There are no findings to indicate acute diverticulitis. There is a rectosigmoid air-fluid level. Peritoneum: There is no intraperitoneal free air or abdominal ascites. Vasculature: The abdominal aorta is normal in course and caliber. Adenopathy: None. Pelvic viscera: There is stable borderline bladder wall thickening. Skeletal structures: No destructive osseous lesions are seen. IMPRESSION: 1. No acute intra-abdominal or pelvic findings 2. Mild fullness of both renal collecting systems, unchanged from the prior study 3. No evidence of bowel obstruction. No evidence of free air 4. No evidence of acute appendicitis. No evidence of acute diverticulitis. 5. Stable borderline bladder wall thickening Electronically signed by: Odilon Ahmadi M.D. 05/30/2018 9:25 AM Dictated Date/Time: 05/30/2018 9:18 AM
[2018-05-30] MEDS ORDERED: HEPARIN IV LOW DOSE NO BOLUS STA (11:20)
[2018-05-30] MEDS ORDERED: ONDANSETRON INJ 2 MG/ML 2 ML VIAL IV PRN (11:30)
[2018-05-30] MEDS ORDERED: ACETAMINOPHEN 325 MG TAB PO PRN (11:30)
[2018-05-30] MEDS ORDERED: MAGNESIUM HYDROXIDE SUSP 30 ML UDC PO PRN (11:30)
[2018-05-30] MEDS ORDERED: NITROGLYCERIN 0.4 MG SL PER TAB CHARGE SL PRN (11:30)
--- NOTE | 2018-05-30 11:42 | History and Physical ---
History & Physical Date & Time of Service: May 30, 2018 at 11:26 Chief Complaint: Abd pain, n/v Primary Care Physician: Jose Watkins M.D. History of Present Illness Source: patient 57 y/o F c/o abd pain, n/v. Pt states she woke around 3am on Wednesday with sudden onset of abd pain. This continued and she started having n/v as well. She has hx of pancreatitis, last being 12/2017 and states that this felt the same. In the past, she states she waited about 4 days hoping her sx would improve and "by the time I got here there was a secondary thing happening", so she came to the ED yesterday. Her PRP, lipase, and CTAP were are WNL, so she was d/c'd to home feeling improved s/p pain meds. Her sx returned and so she came back to the ED this morning for further evaluation. Pt states that Wednesday was a normal day for her. She ate and had no issues. Her last tolerated meal was dinner Wednesday night. She has had emesis with all PO intake , including K and contrast in the ED today. She had an episode of fecal incontinence that was loose in the ED today, but no prior diarrhea. Her pain is epigastric and lower abd. Denies SOB or chest pain. Pt states she does still have mild pain now, but "75% improved" s/p pain meds. Pt had a scope with Dr. Martinez in 2016 and was supposed to start "a medicine that starts with P", but never did. She follows with Dr. Ponce [place] cardiology. She had a cath in 2013 that was WNL. She takes aspirin 81mg daily "because my grandfather did and he lived to be 105". She has been told in the past to take meds for HTN and HLD, however "they didn't work after a month, so I was taken off of them". She was dx with an adrenal tumor 2.5cm in 12/2017. She is being monitored for this. She states she did 24hr urine and saliva testing and they were WNL. Past Medical/Surgical History Pancreatitis HTN Hyperlipidemia Adrenal tumor Cath 2013, nonobstructive CAD Family History Family history was reviewed; no changes noted. Grandfather: hrt problems, lived to 105 Social History Smoking Status: Never Smoker Alcohol Use: Hx of heavy alcohol use in high school and college, but no alcohol injestion since 08/2017 and prior to that it was 04/2017 Drug Use: marijuana (once a month, last was over a month ago) Marital Status: Allergies Coded Allergies: Hydroquinone (Verified Allergy, Severe, BLISTER, 05/30/18) AFFECTS HER AT "20%" Hydrocortisone (Verified Allergy, Unknown, BLISTERS, 05/30/18) Latex1 -Allergic Contact Dermititis (Verified Allergy, Unknown, BLISTERS, 05/30/18) Neomycin (Verified Allergy, Unknown, BLISTERS, 05/30/18) Uncoded Allergies: AMMONIUM THIOGLYCOLATE (Allergy, Severe, BLISTERS, 02/21/18) COMPONENT OF LATEX Home Medications Scheduled Aspirin (Aspirin 81), 81 MG PO DAILY Cholecalciferol (Vitamin D3), 1 TAB PO DAILY Review of Systems Pertinent positives and negatives reviewed in HPI--all others negative Physical Exam Vital Signs Date Time Temp Pulse Resp B/P (MAP) Pulse Ox O2 Delivery O2 Flow Rate FiO2 05/30/18 11:14 72 16 138/105 98 Nasal Cannula 2.0 05/30/18 10:18 74 16 96/67 99 Nasal Cannula 2.0 05/30/18 09:35 0 16 127/72 100 Room Air 05/30/18 09:10 87 16 142/88 98 Room Air 05/30/18 08:30 78 16 110/73 98 Room Air 05/30/18 08:10 96 Nasal Cannula 2.0 05/30/18 08:09 89 16 149/89 97 Room Air 05/30/18 08:02 77 16 221/121 05/30/18 06:48 Room Air 05/30/18 06:48 Room Air 05/30/18 06:45 79 05/30/18 06:34 36.8 90 20 138/98 98 Room Air General Appearance: WD/WN, no apparent distress Head: normocephalic, atraumatic Eyes: normal inspection, sclerae normal Respiratory/Chest: normal breath sounds, no respiratory distress Cardiovascular: regular rate, rhythm, no edema Abdomen/GI: non tender, soft Extremities/Musculoskelatal: no calf tenderness, no pedal edema Neurologic/Psych: alert, normal mood/affect, oriented x 3 Skin: normal color, warm/dry Diagnostics Laboratory Results Results Past 24 Hours Test 05/30/18 06:30 05/30/18 07:30 Range/Units White Blood Count 20.60 4.8-10.8 K/uL Red Blood Count 4.98 4.2-5.4 M/uL Hemoglobin 14.9 12.0-16.0 g/dL Hematocrit 41.5 37-47 % Mean Corpuscular Volume 83.3 80-100 fL Mean Corpuscular Hemoglobin 29.9 25-34 pg Mean Corpuscular Hemoglobin Concent 35.9 32-36 g/dl Platelet Count 362 130-400 K/uL Mean Platelet Volume 10.3 7.4-10.4 fL Neutrophils (%) (Auto) 84.7 % Lymphocytes (%) (Auto) 8.3 % Monocytes (%) (Auto) 6.5 % Eosinophils (%) (Auto) 0.0 % Basophils (%) (Auto) 0.1 % Neutrophils # (Auto) 17.45 1.4-6.5 K/uL Lymphocytes # (Auto) 1.71 1.2-3.4 K/uL Monocytes # (Auto) 1.34 0.11-0.59 K/uL Eosinophils # (Auto) 0.00 0-0.5 K/uL Basophils # (Auto) 0.02 0-0.2 K/uL RDW Standard Deviation 40.5 36.4-46.3 fL RDW Coefficient of Variation 13.4 11.5-14.5 % Immature Granulocyte % (Auto) 0.4 % Immature Granulocyte # (Auto) 0.08 0.00-0.02 K/uL Prothrombin Time 10.3 9.0-12.0 SECONDS Prothromb Time International Ratio 1.0 0.9-1.1 Activated Partial Thromboplast Time 25.4 21.0-31.0 SECONDS Partial Thromboplastin Ratio 1.0 Sodium Level 133 136-145 mmol/L Potassium Level 2.8 3.5-5.1 mmol/L Chloride Level 98 98-107 mmol/L Carbon Dioxide Level 20 21-32 mmol/L Anion Gap 15.0 3-11 mmol/L Blood Urea Nitrogen 14 7-18 mg/dl Creatinine 1.13 0.60-1.20 mg/dl Est Creatinine Clear Calc Drug Dose 48.0 ml/min Estimated GFR () 61.6 Estimated GFR (Non- 53.2 BUN/Creatinine Ratio 12.4 07-30 Random Glucose 165 70-99 mg/dl Calcium Level 9.2 8.5-10.1 mg/dl Magnesium Level 1.6 1.8-2.4 mg/dl Total Bilirubin 0.8 0.2-1 mg/dl Direct Bilirubin 0.2 0-0.2 mg/dl Aspartate Amino Transf (AST/SGOT) 22 15-37 U/L Alanine Aminotransferase (ALT/SGPT) 21 12-78 U/L Alkaline Phosphatase 85 45-117 U/L Total Creatine Kinase 133 26-192 U/L Creatine Kinase MB 5.4 0.5-3.6 ng/ml Creatine Kinase MB Ratio 4.1 0-3.0 Troponin I 1.010 0-0.045 ng/ml Total Protein 8.4 6.4-8.2 gm/dl Albumin 4.4 3.4-5.0 gm/dl Lipase 2022 73-393 U/L Ethyl Alcohol mg/dL < 3.0 0-3 mg/dl Diagnostic Radiology CT AP: neg for pancreatitis CTAP noted for possible colitis yesterday CT chest: neg for acute CXR neg for acute Normal EKG Impression Assessment and Plan 57 y/o F who was admitted on 05/30 with acute pancreatitis and elevated trop Acute pancreatitis: not noted on CTAP, however clinical picture and elevated lipase, WBC with electrolyte abn support this dx with hx of same Monitor on IVF, NPO Uncertain etiology, triglycerides pending Has seen Dr. Martinez in the past if GI needed Elevated trop: seen by Dr. Alejandra in the ED ECHO done, results pending Feels demand ischemia and will monitor for now Serial trops pending Tele monitor Started on heparin drip in the ED, if trops improved, will d/c Holding aspirin 81mg for heparin drip Follows with Dr. Ponce in [place] if records needed HypoK, HypoNa, HypoMg: in the setting of acute pancreatitis Replace and monitor Elevated BP: hx of HTN, declined outpt meds Monitor Recs for beta israel vs nitrates if ongoing issue, however WNL for the last several Hyperlipidemia: lipids pending Adrenal tumor: pt states this is being monitored, 21mm L sided noted on CT AP [address] AP today, but noted on CT yesterday Other: Full code, states she does not want prolonged life support, feeding tubes etc Heparin drip for DVT proph NPO with IVF Resuscitation Status VTE Prophylaxis Will order VTE Prophylaxis: Yes Additional Copies To Jose Watkins M.D.
[2018-05-30] MEDS ORDERED: MAGNESIUM SULFATE 1GM / D5W 1 GM BAG IV ONE (12:47)
[2018-05-30 13:27] VITALS: BP 151/91; PULSE 64; TEMP 36.8; O2SAT 98; Ht 157.5 cm; Wt 68.0 kg
[2018-05-30] MEDS ORDERED: MAGNESIUM SULFATE 1GM / D5W 100 ML IV STA (13:27)
[2018-05-30] MEDS ORDERED: SODIUM CHLORIDE 0.9% 1000ML 1,000 ML IV SCH (13:40)
--- NOTE | 2018-05-30 13:42 | ECHOCARDIOGRAM REPORT ---
*NOTICE TO RECEIVING DEMOCRAT AGENCY This information is strictly Confidential and protected under [place] law. [place] law prohibits you from making any further disclosure of this information unless further disclosure is expressly permitted by the written consent of the person to whom it pertains or is authorized by law. A general authorization for the release of medical or other information is not sufficient for this purpose. Hospital accepts no responsibility if the information is made available to any other person, INCLUDING THE PATIENT. Interpretation Summary * Name: JENNIFER MUSTAFA Study Date: 05/30/2018 07:46 AM BP: 110/73 mmHg * Patient Location: C.EDB HR: 78 * : 1960 (M/d/yyyy) Gender: Female Height: 62 in * Age: 57 yrs Ethnicity: CA Weight: 146 lb * Ordering Physician: Bairon Kaur * Performed By: Missy Rich RDCS * * Reason For Study: CHEST PAIN * BSA: 1.7 m2 * -- Conclusions -- * 1. Normal LV size. Borderline concentric LVH. * 2. LVEF >70%. No regional wall motion abnormalities. * 3. Normal RV size and function. * 4. No significant valvular pathology. * 5. No prior studies for comparison. Procedure Details * The study was technically difficult. * There were technical limitations due to patient'sinability to cooperate * A contrast injection of Definity was performed to improve assessment of LV function. * Contrast was injected into an intravenous site in the left arm. * One vial of Definity ultrasound contrast was diluted in normal saline to a total volume of 10 ml. A total of '2' ml of solution was administered during imaging. * Lot # [id number] of Definity utilized for procedure. * Expiration date 04/28. Left Ventricle * The left ventricle is grossly normal size. * There is borderline concentric left ventricular hypertrophy. * Ejection Fraction = >70 %. * No regional wall motion abnormalities noted. Right Ventricle * The right ventricle is grossly normal size. * The right ventricular systolic function is qualitatively normal. Atria * The left atrial size is normal. * Right atrial size is normal. * No ASD detected; PFO is not assessed. Mitral Valve * The mitral valve is grossly normal. * There is no mitral valve stenosis. * There is trace mitral regurgitation. Tricuspid Valve * Significant tricuspid regurgitation is absent. Aortic Valve * The aortic valve is not well visualized. * Aortic stenosis is absent. * There is no significant aortic regurgitation. Pulmonic Valve * The pulmonary valve is inadequately visualized, but the Doppler data is adequate for interpretation. * Pulmonic stenosis is absent. * There is no significant pulmonary regurgitation. Great Vessels * The aortic root and proximal ascending aorta are normal sized. Pericardium/Pleural * There is no pericardial effusion. MMode 2D Measurements and Calculations IVSd 1.2 cm IVSs 1.8 cm LVIDd 4.1 cm LVIDs 2.4 cm LVPWd 0.96 cm LVPWs 1.7 cm IVS/LVPW 1.2 FS 40.4 % EDV(Teich) 73.6 ml ESV(Teich) 20.9 ml EF(Teich) 71.5 % EDV(cubed) 68.2 ml ESV(cubed) 14.5 ml EF(cubed) 78.8 % % IVS thick 57.8 % % LVPW thick 77.6 % LV mass(C)d 143.1 grams LV mass(C)dI 85.6 grams/m\S\2 LV mass(C)s 166.4 grams LV mass(C)sI 99.5 grams/m\S\2 SV(Teich) 52.7 ml SI(Teich) 31.5 ml/m\S\2 SV(cubed) 53.8 ml SI(cubed) 32.1 ml/m\S\2 ACS 1.0 cm LVOT diam 1.4 cm LVOT area 1.4 cm\S\2 LVAd ap4 30.2 cm\S\2 LVLd ap4 7.5 cm EDV(MOD-sp4) 94.6 ml EDV(sp4-el) 102.6 ml LVAs ap4 15.1 cm\S\2 LVLs ap4 5.9 cm ESV(MOD-sp4) 32.7 ml ESV(sp4-el) 33.1 ml EF(MOD-sp4) 65.4 % EF(sp4-el) 67.7 % LVAd ap2 22.0 cm\S\2 LVLd ap2 7.1 cm EDV(MOD-sp2) 56.9 ml EDV(sp2-el) 57.9 ml LVAs ap2 10.6 cm\S\2 LVLs ap2 5.2 cm ESV(MOD-sp2) 20.7 ml ESV(sp2-el) 18.4 ml EF(MOD-sp2) 63.6 % EF(sp2-el) 68.2 % LVLd %diff -6.35 % EDV(MOD-bp) 76.3 ml LVLs %diff -13.32 % ESV(MOD-bp) 27.1 ml EF(MOD-bp) 64.4 % SV(MOD-sp4) 61.9 ml SI(MOD-sp4) 37.0 ml/m\S\2 SV(MOD-sp2) 36.2 ml SI(MOD-sp2) 21.7 ml/m\S\2 SV(MOD-bp) 49.1 ml SI(MOD-bp) 29.4 ml/m\S\2 SV(sp4-el) 69.4 ml SI(sp4-el) 41.5 ml/m\S\2 SV(sp2-el) 39.5 ml SI(sp2-el) 23.6 ml/m\S\2 Doppler Measurements and Calculations MV E max rebecca 76.0 cm/sec MV A max rebecca 97.1 cm/sec MV E/A 0.78 MV dec time 0.25 sec Ao V2 max 132.7 cm/sec Ao max PG 7.0 mmHg Ao max PG (full) 2.1 mmHg YISSEL(V,A) 1.2 cm\S\2 YISSEL(V,D) 1.2 cm\S\2 LV V1 max PG 4.9 mmHg LV V1 max 110.9 cm/sec PA V2 max 99.2 cm/sec PA max PG 3.9 mmHg
[2018-05-30] MEDS: HEPARIN 25,000 UNIT/500ML D5W 500 ML IV SCH ×2 (14:03→14:53)
[2018-05-30 14:30] LABS: PTT PATIENT 31.9 SECONDS (21.0-31.0)
[2018-05-30] MEDS ORDERED: HEPARIN IV BOLUS 4,000 UNIT in SYRINGE 0 ML IV ONE (15:15)
[2018-05-30 18:39] LABS: CALCIUM 8.3 mg/dl (8.5-10.1); CREATININE 0.71 mg/dl (0.60-1.20)
[2018-05-30] MEDS ORDERED: NURSING VERBAL MED ORDER ONE (20:00)
[2018-05-30] MEDS: PANTOprazole INJ 40 MG in SYRINGE 0 ML IV SCH (20:23)
[2018-05-30] MEDS: NSS + 20MEQ KCL 1000ML 1,000 ML IV SCH (20:24)
[2018-05-30 20:38] LABS: PTT PATIENT 54.6 SECONDS (21.0-31.0)
[2018-05-30 23:01] VITALS: BP 121/67; PULSE 65; TEMP 36.9; O2SAT 98
[2018-05-31] MEDS: NSS + 20MEQ KCL 1000ML 1,000 ML IV SCH ×3 (03:55→20:19)
[2018-05-31 03:56] VITALS: BP 145/82; PULSE 65; TEMP 36.7; O2SAT 95
[2018-05-31 05:34] LABS: PTT PATIENT 42.3 SECONDS (21.0-31.0)
[2018-05-31 06:06] LABS: CALCIUM 7.7 mg/dl (8.5-10.1); CREATININE 0.56 mg/dl (0.60-1.20); POTASSIUM 3.7 mmol/L (3.5-5.1)
[2018-05-31 06:17] LABS: BASO % 0.3 %; BASO ABS # 0.03 K/uL (0-0.2); EOS % 0.3 %; EOS ABS # 0.03 K/uL (0-0.5); HEMATOCRIT 34.4 % (37-47); HEMOGLOBIN 11.6 g/dL (12.0-16.0); IG# 0.02 K/uL (0.00-0.02); LYMPH % 27.5 %; LYMPH ABS # 2.47 K/uL (1.2-3.4); MEAN CELL VOLUME 87.1 fL (80-100); MEAN CORPUSCULAR HEMOGLOBIN 29.4 pg (25-34); MEAN CORPUSCULAR HGB CONC 33.7 g/dl (32-36); MEAN PLATELET VOLUME 9.9 fL (7.4-10.4); MONO % 7.9 %; MONO ABS # 0.71 K/uL (0.11-0.59); NEUT % 63.8 %; NEUT ABS # 5.73 K/uL (1.4-6.5); PLATELET COUNT 263 K/uL (130-400); RED CELL DISTRIBUTION WIDTH CV 13.6 % (11.5-14.5); RED CELL DISTRIBUTION WIDTH SD 43.6 fL (36.4-46.3); WHITE BLOOD COUNT 8.99 K/uL (4.8-10.8)
[2018-05-31] MEDS: HEPARIN 25,000 UNIT/500ML D5W 500 ML IV SCH (06:22)
[2018-05-31] MEDS ORDERED: HEPARIN IV BOLUS 2,000 UNIT in SYRINGE 0 ML IV ONE (06:30)
[2018-05-31 07:26] VITALS: BP 131/79; PULSE 57; TEMP 36.4; O2SAT 97
[2018-05-31] MEDS: PANTOprazole INJ 40 MG in SYRINGE 0 ML IV SCH ×2 (07:59→20:27)
[2018-05-31 08:00] VITALS: O2SAT 97
[2018-05-31 11:24] VITALS: BP 120/73; PULSE 57; TEMP 36.5; O2SAT 99
[2018-05-31] MEDS ORDERED: LORAZEPAM 1 MG TAB PO STA (11:44)
[2018-05-31 13:08] LABS: PTT PATIENT 49.4 SECONDS (21.0-31.0)
[2018-05-31] MEDS: SUCRALFATE 1 GM/10 ML UDC PO SCH ×2 (15:21→20:27)
[2018-05-31 15:25] VITALS: BP 147/65; PULSE 69; TEMP 36.7; O2SAT 98
[2018-05-31 18:58] VITALS: BP 145/86; PULSE 66; TEMP 36.8; O2SAT 99
[2018-05-31] MEDS ORDERED: LORAZEPAM 1 MG TAB ONE (19:18)
--- NOTE | 2018-05-31 19:43 | Progress Note ---
Subjective Date of Service: May 31, 2018. Subjective Pt evaluation today including: conversation w/ patient, physical exam, chart review, lab review, review of studies (CT chest/abd/pelvis; outpatient heart cath - 2013 (found in [employer]) ), review of inpatient medication list Pain: mild high epigastric discomfort; no chest symptoms PO Intake: npo Voiding: no voiding problems tele stable overnight no nausea, emesis, or diarrhea no chest pain, dyspnea, orthopnea feels much better today asks numerous questions about the pancreatitis Problem List Medical Problems: (1) Abdominal pain Status: Acute (2) Diarrhea Status: Acute (3) GI bleed Status: Acute (4) Influenza Status: Acute (5) Nausea Status: Acute (6) Pancreatitis Status: Acute (7) Vomiting Status: Acute Review of Systems Constitutional: No fever, No chills Respiratory: No shortness of breath, No dyspnea on exertion Cardiac: No chest pain, No orthopnea, No PND, No edema Abdomen: + pain, No nausea, No vomiting, No diarrhea, No GI bleeding Objective Vital Signs Date Time Temp Pulse Resp B/P (MAP) Pulse Ox O2 Delivery O2 Flow Rate FiO2 05/31/18 18:58 36.8 66 18 145/86 (105) 99 Room Air 05/31/18 16:00 Room Air 05/31/18 15:25 36.7 69 18 147/65 (92) 98 Room Air 05/31/18 11:24 36.5 57 18 120/73 (89) 99 Room Air 05/31/18 08:00 97 Room Air 05/31/18 07:26 36.4 57 18 131/79 (96) 97 Room Air 05/31/18 03:56 36.7 65 18 145/82 (103) 95 Room Air 05/31/18 00:00 Room Air 05/30/18 23:01 36.9 65 16 121/67 (85) 98 Room Air 05/30/18 20:00 Room Air Physical Exam General Appearance: no apparent distress ENT: pharynx normal Neck: no JVD Respiratory/Chest: lungs clear, no respiratory distress, no accessory muscle use Cardiovascular: regular rate, rhythm, no gallop, no murmur Abdomen: normal bowel sounds, soft, no organomegaly, + tenderness (near junction of stomach and esophagus ) Extremities: no pedal edema Neurologic/Psychiatric: alert, oriented x 3 Skin: no rash Laboratory Results Last 24 Hours Test 05/30/18 20:11 05/30/18 23:17 05/31/18 05:15 05/31/18 12:37 Activated Partial Thromboplast Time 54.6 SECONDS 42.3 SECONDS 49.4 SECONDS Partial Thromboplastin Ratio 2.1 1.6 1.9 Troponin I 0.390 ng/ml 0.246 ng/ml 0.147 ng/ml White Blood Count 8.99 K/uL Red Blood Count 3.95 M/uL Hemoglobin 11.6 g/dL Hematocrit 34.4 % Mean Corpuscular Volume 87.1 fL Mean Corpuscular Hemoglobin 29.4 pg Mean Corpuscular Hemoglobin Concent 33.7 g/dl Platelet Count 263 K/uL Mean Platelet Volume 9.9 fL Neutrophils (%) (Auto) 63.8 % Lymphocytes (%) (Auto) 27.5 % Monocytes (%) (Auto) 7.9 % Eosinophils (%) (Auto) 0.3 % Basophils (%) (Auto) 0.3 % Neutrophils # (Auto) 5.73 K/uL Lymphocytes # (Auto) 2.47 K/uL Monocytes # (Auto) 0.71 K/uL Eosinophils # (Auto) 0.03 K/uL Basophils # (Auto) 0.03 K/uL RDW Standard Deviation 43.6 fL RDW Coefficient of Variation 13.6 % Immature Granulocyte % (Auto) 0.2 % Immature Granulocyte # (Auto) 0.02 K/uL Sodium Level 142 mmol/L Potassium Level 3.7 mmol/L Chloride Level 112 mmol/L Carbon Dioxide Level 24 mmol/L Anion Gap 6.0 mmol/L Blood Urea Nitrogen 8 mg/dl Creatinine 0.56 mg/dl Est Creatinine Clear Calc Drug Dose 96.8 ml/min Estimated GFR () 118.3 Estimated GFR (Non- 102.1 BUN/Creatinine Ratio 14.7 Random Glucose 94 mg/dl Calcium Level 7.7 mg/dl Magnesium Level 2.1 mg/dl Lipase 174 U/L Test 05/31/18 17:11 Bedside Glucose 83 mg/dl Assessment and Plan 57yo female - 1. acute pancreatitis - clinically resolving/biochemically resolved. Etiology? No obvious gallstones on present or past imaging. Denies etoh. Calcium normal. Triglycerides normal. In light of recurrent pancreatitis will check MRCP -- r/o pancreatic divisum, r/ o CBD abnormalities, etc. Cont IVF. Start clears. 2. positive troponin -- ?ACS vs myocardial demand ischemia - suspect latter. Records reviewed -- [facility] heart cath [address] [facility] - minimal luminal irregularities of all major vessels. Stop heparin. She should be on risk factor reduction meds (statin, asa, etc). ECHO from yesterday w/o wall motion abnormalities. Cont to follow. 3. hypokalemia, hypomagnesemia - resolved. 4. DVT proph - add lovenox 40mg daily in am. 5. abnormal distal esophagus on CTA chest, GERD symptoms, discomfort - PPI twice daily. Needs endoscopic evaluation after d/c by GI. Add carafate QID. 6. FEN - cont current IVF, BMP am, clears. 7. HTN - now controlled; monitor. Severe elevation at presentation was likely due to pain. home tomorrow? Continued [facility] stay due to: inadequate po fluid intake, multiple IV medications needed Discharge planning: home
[2018-05-31] MEDS: THIAMINE HCL 100 MG TAB PO SCH (20:27)
--- NOTE | 2018-05-31 21:18 | DIAGNOSTIC IMAGING REPORT ---
MRCP CLINICAL HISTORY: Pancreatitis. COMPARISON STUDY: Abdominal CT dated 05/30/2018. Abdominal ultrasound dated 12/09/2017. TECHNIQUE: Abdominal MRCP is performed utilizing various T2 sequences in the axial and coronal planes. IV contrast was not administered for this examination. 3-D reformats are created and assessed. The examination is modestly degraded by motion artifact. FINDINGS: The gallbladder is normal in appearance. No gallstones are identified. There is no intra or extrahepatic biliary ductal dilatation. The common bile duct measures up to 4 mm. There is no evidence of choledocholithiasis. The pancreatic duct is normal in caliber. The liver, spleen, adrenal glands, kidneys, and pancreas are normal as visualized. No peripancreatic stranding or fluid is identified. There is no upper abdominal ascites. No bowel obstruction is identified. No upper abdominal lymphadenopathy is seen. There is no pleural effusion. The bony structures are normal as imaged. IMPRESSION: Normal MRCP. Dictated: 05/31/2018 8:39 PM Transcribed: 05/31/2018 9:17 PM Cindy Electronically signed by: Rojelio Thomson M.D. 05/31/2018 9:22 PM Dictated Date/Time: 05/31/2018 8:39 PM
[2018-06-01] VITALS (7 sets, daily range): BP systolic 161–182; BP diastolic 80–97; PULSE 57–67; TEMP 36.7–37.2; O2SAT 91–100
[2018-06-01] MEDS: NSS + 20MEQ KCL 1000ML 1,000 ML IV SCH (04:10)
[2018-06-01] MEDS: SUCRALFATE 1 GM/10 ML UDC PO SCH ×3 (06:02→16:22)
[2018-06-01 07:16] LABS: BASO % 0.3 %; BASO ABS # 0.02 K/uL (0-0.2); EOS % 0.8 %; EOS ABS # 0.06 K/uL (0-0.5); HEMATOCRIT 36.7 % (37-47); HEMOGLOBIN 12.4 g/dL (12.0-16.0); IG# 0.02 K/uL (0.00-0.02); LYMPH % 34.7 %; MEAN CORPUSCULAR HEMOGLOBIN 29.4 pg (25-34); MEAN CORPUSCULAR HGB CONC 33.8 g/dl (32-36); MEAN PLATELET VOLUME 10.1 fL (7.4-10.4); MONO ABS # 0.62 K/uL (0.11-0.59); NEUT % 55.9 %; NEUT ABS # 4.37 K/uL (1.4-6.5); PLATELET COUNT 283 K/uL (130-400); RED CELL DISTRIBUTION WIDTH CV 13.5 % (11.5-14.5); RED CELL DISTRIBUTION WIDTH SD 43.2 fL (36.4-46.3); WHITE BLOOD COUNT 7.79 K/uL (4.8-10.8)
[2018-06-01 07:53] LABS: CALCIUM 8.6 mg/dl (8.5-10.1); CREATININE 0.56 mg/dl (0.60-1.20); POTASSIUM 3.7 mmol/L (3.5-5.1)
[2018-06-01] MEDS: PANTOprazole INJ 40 MG in SYRINGE 0 ML IV SCH (08:44)
[2018-06-01] MEDS: THIAMINE HCL 100 MG TAB PO SCH (08:45)
[2018-06-01] MEDS ORDERED: CEROVITE ADV FORMULA TAB PO SCH (09:00)
[2018-06-01] MEDS ORDERED: ENOXAPARIN 40 MG/0.4 ML SYR SQ SCH (09:00)
--- NOTE | 2018-06-01 09:36 | Cardiology Follow-Up ---
Subjective Date of Service: Jun 01, 2018. Pt evaluation today including: conversation w/ patient, physical exam, lab review, review of studies, review of inpatient medication list History of Present Illness This is a 57-year-old woman who has a history of known nonocclusive coronary artery disease followed by Dr. Ponce in [place]. She had catheterization in 2013. She has refused statin therapy. She also has a history of hypertension and has refused blood pressure medication. I was not able to interview her adequately in the emergency room as she just received Ativan, however I did spend a lot of time with her yesterday afternoon discussing her situation. She had by then had resolution of her discomfort and was not having chest or abdominal discomfort. Social History Smoking Status: Never Smoker History of Alcohol Use: Yes Review of Systems Respiratory: No cough, No wheezing, No shortness of breath, No dyspnea on exertion Cardiac: No chest pain, No orthopnea, No PND, No edema, No palpitations Probably not reliable due to just receiving Ativan and lack of concentration Medications No cardiovascular Objective Vital Signs Past 12 Hours Date Time Temp Pulse Resp B/P (MAP) Pulse Ox O2 Delivery O2 Flow Rate FiO2 06/01/18 07:28 36.8 57 18 161/93 (115) 96 Room Air 06/01/18 03:08 36.7 62 20 161/81 (107) Room Air 06/01/18 00:00 Room Air Last Recorded Weight-Kilograms: 68.000 Physical Exam Constitutional: Level of Distress: NAD Lungs: Respiratory effort: no dyspnea, good air movement Auscultation: breath sounds normal, no wheezing Cardiovascular: Heart Auscultation: RRR, no murmurs, no rubs, no gallops Peripheral Pulses: Bruits: none appreciated Extremities: no edema Data Laboratory Results: Last 24 Hours Test 05/31/18 12:37 05/31/18 17:11 06/01/18 06:07 Activated Partial Thromboplast Time 49.4 SECONDS Partial Thromboplastin Ratio 1.9 Troponin I 0.147 ng/ml Bedside Glucose 83 mg/dl White Blood Count 7.79 K/uL Red Blood Count 4.22 M/uL Hemoglobin 12.4 g/dL Hematocrit 36.7 % Mean Corpuscular Volume 87.0 fL Mean Corpuscular Hemoglobin 29.4 pg Mean Corpuscular Hemoglobin Concent 33.8 g/dl Platelet Count 283 K/uL Mean Platelet Volume 10.1 fL Neutrophils (%) (Auto) 55.9 % Lymphocytes (%) (Auto) 34.7 % Monocytes (%) (Auto) 8.0 % Eosinophils (%) (Auto) 0.8 % Basophils (%) (Auto) 0.3 % Neutrophils # (Auto) 4.37 K/uL Lymphocytes # (Auto) 2.70 K/uL Monocytes # (Auto) 0.62 K/uL Eosinophils # (Auto) 0.06 K/uL Basophils # (Auto) 0.02 K/uL RDW Standard Deviation 43.2 fL RDW Coefficient of Variation 13.5 % Immature Granulocyte % (Auto) 0.3 % Immature Granulocyte # (Auto) 0.02 K/uL Sodium Level 143 mmol/L Potassium Level 3.7 mmol/L Chloride Level 109 mmol/L Carbon Dioxide Level 25 mmol/L Anion Gap 8.0 mmol/L Blood Urea Nitrogen 5 mg/dl Creatinine 0.56 mg/dl Est Creatinine Clear Calc Drug Dose 97.8 ml/min Estimated GFR () 118.3 Estimated GFR (Non- 102.1 BUN/Creatinine Ratio 8.5 Random Glucose 84 mg/dl Calcium Level 8.6 mg/dl Imaging: Echocardiogram shows normal left ventricular function without regional wall motion abnormalities EKG: Sinus rhythm, no acute changes Telemetry reviewed: Sinus rhythm, no significant arrhythmia Assessment and Plan 1. Elevated troponin: She had significant troponin elevation, I suspect this was demand ischemia, she has known underlying coronary artery disease based on catheterization 4 years ago and has refused statin therapy as well as treatment for her hypertension. I suspect she has had progression but cannot prove it without further testing and do not think we should do that. I do not believe she is symptomatic coronary artery disease. She does however need risk factor modification, she needs statin therapy and blood pressure medications. She quotes various physicians as telling her that she probably does not have much risk and that her arteries probably are not bad, obviously that is probably not true and without statin therapy and blood pressure treatment she will almost certainly develop clinical coronary disease at some point in the future, the time course is impossible to predict. Currently she is refusing, she can discuss this with her broommaker in [place]. It is a long-term management issue not in acute one. 2. Abdominal discomfort: Based on her elevated lipase and elevated white count I suspect this was acute pancreatitis. I doubt it is referred pain from a cardiac etiology. 3. Severe hypertension: This is likely stress related in part although she has a history of very high blood pressure and has refused treatment. Her blood pressure has remained elevated. I would recommend treating this with beta- blockade at a minimum, but she refuses. I will sign off, I will be happy to see her if she develops any further cardiac issues. Thank you for allowing me to participate in her care.
--- NOTE | 2018-06-01 14:43 | DIAGNOSTIC IMAGING REPORT ---
THORACIC SPINE 3 VIEWS CLINICAL HISTORY: Thoracic back pain. FINDINGS: AP, lateral, and swimmer's views of the thoracic spine are correlated with chest CT dated 05/30/2018. The skeletal structures are osteopenic. There is no radiographic evidence of fracture or malalignment. Vertebral body height and alignment are maintained throughout the thoracic spine. Small anterior osteophytes are seen throughout. The transverse processes and pedicles are grossly intact as seen on the frontal view. Mild multilevel degenerative disc space narrowing is noted with associated endplate sclerosis. The visualized lung parenchyma appears clear. IMPRESSION: No acute bony abnormality is seen involving the thoracic spine. Dictated: 06/01/2018 2:39 PM Transcribed: 06/01/2018 2:43 PM [email or web address] Electronically signed by: Rojelio Thomson M.D. 06/01/2018 3:13 PM Dictated Date/Time: 06/01/2018 2:39 PM
--- NOTE | 2018-06-01 14:55 | Gastrointestinal Consultation ---
Gastrointestinal Consultation Date of Consultation: Jun 01, 2018 Attending Physician: Dr. Edmond Consulting Physician: Suyapa Rausch PA-C Reason for Consultation: Pancreatitis History of Present Illness Patient is a 57 year old female with a PMH of HTN, HLD, adrenal tumor, CAD, & recurrent idiopathic pancreatitis who presented to the hospital after developing a sudden onset of abdominal pain on Tuesday 05/29. She reports that the pain progressively worsened and she developed nausea and vomiting. She decided that since she has had pancreatitis previously, she did not want to wait too long before presenting to the hospital, so she presented on 05/29. Her symptoms improved. Her Lipase and CT were normal, so she went home. Her symptoms returned so she returned to the ED on 05/30. She describes her pain as epigastric. She had a CTA with mild thickening of the distal esophagus. She had a lipase of 2022 on admission. It has since normalized. She reports her pain has improved as well. She is taking Carafate & Protonix 40 mg BID. She reports significant NSAID use recently. She had an EGD in 2015 for melena and abdominal pain. It was unremarkable with the exception of a hiatal hernia. She was to begin Protonix at that time, but did not follow through with that. She had a CT scan that indicated an unremarkable pancreas and a normal MRCP. Her troponins have been elevated since admission. She denies alcohol use. She denies cholesterol issues. She denies family history of pancreatic issues. Past Medical/Surgical History Medical Problems: (1) Abdominal pain Status: Acute (2) Diarrhea Status: Acute (3) GI bleed Status: Acute (4) Influenza Status: Acute (5) Nausea Status: Acute (6) Pancreatitis Status: Acute (7) Vomiting Status: Acute Past Medical History: HTN, HLD, adrenal tumor, CAD Past Surgical History: Cardiac cath, colonoscopy, EGD Family History FH: arthritis FH: stroke Social History Smoking Status: Never Smoker Drug Use: marijuana (once a month, last was over a month ago) Marital Status: Housing Status: lives with significant other Allergies Coded Allergies: Hydroquinone (Verified Allergy, Severe, BLISTER, 05/30/18) AFFECTS HER AT "20%" Hydrocortisone (Verified Allergy, Unknown, BLISTERS, 05/30/18) Latex1 -Allergic Contact Dermititis (Verified Allergy, Unknown, BLISTERS, 05/30/18) Neomycin (Verified Allergy, Unknown, BLISTERS, 05/30/18) Uncoded Allergies: AMMONIUM THIOGLYCOLATE (Allergy, Severe, BLISTERS, 02/21/18) COMPONENT OF LATEX Current Medications Home Meds and Scripts Medications Dose Route/Sig Max Daily Dose Days Date Category Vitamin D3 (Cholecalciferol) 1,000 Unit Tab 1 Tab PO DAILY 90 05/29/18 Reported Aspirin 81 (Aspirin) 81 Mg Tab 81 Mg PO DAILY 12/08/17 Reported Review of Systems Constitutional: No fever, No chills Eyes: No problem reported Respiratory: No cough, No shortness of breath Cardiac: No chest pain Abdomen: No pain, No nausea, No vomiting, No diarrhea, No GI bleeding Musculoskeletal: No joint pain Neuro: No problem reported Heme: No problem reported Endo: No problem reported Skin: No problem reported Physical Exam Date Time Temp Pulse Resp B/P (MAP) Pulse Ox O2 Delivery O2 Flow Rate FiO2 06/01/18 11:04 36.8 67 20 177/97 (123) 95 Room Air 06/01/18 08:00 96 Room Air 2.0 06/01/18 07:28 36.8 57 18 161/93 (115) 96 Room Air 06/01/18 03:08 36.7 62 20 161/81 (107) Room Air 06/01/18 00:00 Room Air 05/31/18 20:00 Room Air 05/31/18 18:58 36.8 66 18 145/86 (105) 99 Room Air 05/31/18 16:00 Room Air 05/31/18 15:25 36.7 69 18 147/65 (92) 98 Room Air General Appearance: WD/WN, no apparent distress Eyes: normal inspection, PERRL ENT: hearing grossly normal Respiratory/Chest: lungs clear, normal breath sounds Cardiovascular: regular rate, rhythm Abdomen: normal bowel sounds, non tender, soft Extremities: non-tender Neurologic/Psych: alert, oriented x 3 Skin: normal color Laboratory Results Last 24 Hours Test 05/31/18 17:11 06/01/18 06:07 Bedside Glucose 83 mg/dl White Blood Count 7.79 K/uL Red Blood Count 4.22 M/uL Hemoglobin 12.4 g/dL Hematocrit 36.7 % Mean Corpuscular Volume 87.0 fL Mean Corpuscular Hemoglobin 29.4 pg Mean Corpuscular Hemoglobin Concent 33.8 g/dl Platelet Count 283 K/uL Mean Platelet Volume 10.1 fL Neutrophils (%) (Auto) 55.9 % Lymphocytes (%) (Auto) 34.7 % Monocytes (%) (Auto) 8.0 % Eosinophils (%) (Auto) 0.8 % Basophils (%) (Auto) 0.3 % Neutrophils # (Auto) 4.37 K/uL Lymphocytes # (Auto) 2.70 K/uL Monocytes # (Auto) 0.62 K/uL Eosinophils # (Auto) 0.06 K/uL Basophils # (Auto) 0.02 K/uL RDW Standard Deviation 43.2 fL RDW Coefficient of Variation 13.5 % Immature Granulocyte % (Auto) 0.3 % Immature Granulocyte # (Auto) 0.02 K/uL Sodium Level 143 mmol/L Potassium Level 3.7 mmol/L Chloride Level 109 mmol/L Carbon Dioxide Level 25 mmol/L Anion Gap 8.0 mmol/L Blood Urea Nitrogen 5 mg/dl Creatinine 0.56 mg/dl Est Creatinine Clear Calc Drug Dose 97.8 ml/min Estimated GFR () 118.3 Estimated GFR (Non- 102.1 BUN/Creatinine Ratio 8.5 Random Glucose 84 mg/dl Calcium Level 8.6 mg/dl Impression Patient is a 57 yo female who was hospitalized with pancreatitis. Pain has improved. Her lipase has normalized and her imaging is unremarkable. She had CTA findings of distal esophageal thickening. She has had recurrent idiopathic pancreatitis in the past (at least 3 occasions). Plan 1) Clear liquid diet. 2) Protonix 40 mg BID. 3) Carafate 1 gm four times daily before meals and at bedtime x 10 days. 4) Outpatient IgG4 subclasses for autoimmune pancreatitis. Outpatient EGD/EUS to investigate both abnormal CT findings of the esophagus & recurrent pancreatitis. 5) Supportive care per primary team. Agree with SHAQUILLE Garrett as above Abd: Soft, NT, ND, +BS Will need outpatient workup with EGD/EUS, which we do not perform, but will help to arrange.
--- NOTE | 2018-06-01 15:28 | DIAGNOSTIC IMAGING REPORT ---
LEFT UPPER EXTREMITY VENOUS DOPPLER ULTRASOUND CLINICAL HISTORY: left arm superficial thrombophlebitis? COMPARISON STUDY: No previous studies for comparison. FINDINGS: The left internal jugular, subclavian, axillary, cephalic, brachial, basilic, radial and ulnar veins are patent. No superficial thrombus was identified within the left upper extremity. Note was made of a prominent left upper extremity node. IMPRESSION: No deep venous thrombus within the left upper extremity. Electronically signed by: Edvin Quiroz M.D. 06/01/2018 3:27 PM Dictated Date/Time: 06/01/2018 3:25 PM
[2018-06-01] MEDS: DICLOFENAC SOD 1% GEL 100 GM TUBE EXT SCH ×2 (16:23→16:25)
[2018-06-01] MEDS ORDERED: VLTG EXT (16:49)
[2018-06-01] MEDS ORDERED: SUCR1TAB29 PO (16:49)
[2018-06-01] MEDS ORDERED: PANT40TA2 PO (16:49)
[2018-06-01] MEDS ORDERED: AMLO5TAB3 PO (16:49)
--- NOTE | 2018-06-01 16:58 | Discharge Instructions ---
Discharge Instructions Date of Service Jun 01, 2018. Admission Reason for Admission: Acute Pancreatitis Discharge Discharge Diagnosis / Problem: Acute Pancreatitis - improved/resolved Discharge Goals Goal(s): Learn about illness, Diagnostic testing, Therapeutic intervention Activity Recommendations Activity Limitations: resume your previous activity . Instructions / Follow-Up Instructions / Follow-Up 1. acute pancreatitis - this has improved nicely during your stay. You were seen by the [facility] GI team who is recommending an outpatient "endoscopic ultrasound." This will be arranged in the next week or so. They are also recommending some additional blood work that will be done as an outpatient. At this time the exact cause of the pancreatitis is uncertain but hopefully the other tests planned will shed some light on this. 2. diet - * for the next 24-36 hours please follow a "full liquids diet" -- this includes water, broth, juices, gatorade, caffeine free soda, jello, [place] ice, low fat milk, low fat yogurt and ice cream, and cream-based soups. * after about 36 hours you can gradually add in low-fat solids. Please avoid fast foods, fried foods, spicy foods, high-fat foods. Follow a low-fat diet for about 1 week. * it is extremely important to avoid all forms of alcohol 3. abnormal esophagus on CAT scan, suspected reflux disease - * take pantoprazole 40mg twice a day every day * take carafate (sucralfate) 1gm before meals and at bedtime for 10 days * both prescriptions sent to [facility] for you * the outpatient endoscopic ultrasound will be able to look at the esophagus in more detail 4. high blood pressure - I would strongly recommend that you start on amlodipine 5mg once a day for your high blood pressure. 5. history of mild coronary artery disease as seen on heart cath in 2013 in [place] - please follow-up with the auto apprentice mechanic in [place] as scheduled. Of note - your echocardiogram heart ultrasound was normal. 6. Please talk to Dr. Watkins about obtaining a referral to rheumatology to discuss your concerns about autoimmune disease and possible Lupus. 7. Follow-up appointments - see separate section. 8. Left arm bruising - again there was no blood clot or any problem with the veins on the ultrasound. Please use a warm compress to the area several times a day for the next few days to help the swelling/bruising go away. 9. Return to [facility] if - * your abdominal pain returns * you develop recurrent nausea or vomiting * you develop severe chest pains * you are unable to eat/drink * you develop fever over 100.5 degrees * any other concerns Current Hospital Diet Patient's current hospital diet: Full Liquid Diet Discharge Diet Recommended Diet: Full Liquid Diet (with advancement to low fat diet over the next 2 days) Procedures Procedures Performed: CAT scans of the chest, abdomen, and pelvis. These showed an abnormal esophagus ("food pipe"). MRI of the gall bladder and pancreas - normal, no signs of gallstones or other abnormalities. Doppler of the left arm - no blood clot. Thoracic spine x-ray - normal. Pending Studies Studies pending at discharge: no Laboratory Results Lipid Panel Test 05/30/18 17:22 Range/Units Triglycerides Level 91 0-150 mg/dl Cholesterol Level 160 0-200 mg/dl HDL Cholesterol 49 mg/dl Cholesterol/HDL Ratio 3.3 LDL Cholesterol, Calculated 93 mg/dl Medical Emergencies . Who to Call and When: Medical Emergencies: If at any time you feel your situation is an emergency, please call 911 immediately. . Non-Emergent Contact Non-Emergency issues call your: Primary Care Provider Call Non-Emergent contact if: temperature is above 100.5, your pain is not controlled, your pain is worsening, your pain is unusual for you, your pain is concerning you, you have any medication questions . . "Provider Documentation" section prepared by Kennedy Edmond. .
[2018-06-01] MEDS ORDERED: PANTOprazole SOD 40 MG TAB PO SCH (21:00)
== END 2018-06-01 17:10 | disposition home or self-care (01) | DRG 439 ==
LOC: EDBD 06:24 → C.EDB 06:26 → C.MED 11:25 → ENRESERV 11:47
PROVIDERS: ADMIT Family Medicine; ATTEND Internal Medicine
DX: K85.90 Acute pancreatitis without necrosis or infection, unspecified (principal); I24.8 Other forms of acute ischemic heart disease; E87.1 Hypo-osmolality and hyponatremia; E87.6 Hypokalemia; E83.42 Hypomagnesemia; R93.3 Abnormal findings on diagnostic imaging of other parts of digestive tract; I10 Essential (primary) hypertension; E78.5 Hyperlipidemia, unspecified; D35.02 Benign neoplasm of left adrenal gland; I25.10 Atherosclerotic heart disease of native coronary artery without angina pectoris; Z87.19 Personal history of other diseases of the digestive system; Z79.82 Long term (current) use of aspirin; Z88.1 Allergy status to other antibiotic agents; Z88.8 Allergy status to other drugs, medicaments and biological substances; Z91.040 Latex allergy status